=== PATIENT | female | born 1995 | race Caucasian/White ===

== ENCOUNTER 2021-07-01 16:52 | Emergency (ER) | payer SELFPAY ==
[2021-07-01 17:42] VITALS: BP 105/47; PULSE 63; TEMP 97.9; BMI 24.0
[2021-07-01 18:29] LABS: BASO % 0.4 % (0-2.0); EOS % 0.4 % (0-4.5); HEMATOCRIT 42.8 % (32.4-45.2); HEMOGLOBIN 14.7 GM/dL (10.7-15.3); LYMPH % 17.8 % (8-40); MCHC 34.3 g/dl (32.0-36.0); MEAN CELL VOLUME 93.5 fl (80-96); MEAN PLT VOLUME 9.6 fl (7.5-11.1); MONO % 5.3 % (3.8-10.2); NEUT % 76.1 % (42.8-82.8); PLATELET COUNT 273 10^3/uL (134-434); RBC 4.57 M/mm3 (3.60-5.2); RDW 12.2 % (11.6-15.6); WHITE BLOOD COUNT 11.8 K/mm3 (4.0-10.0)
[2021-07-01 18:46] LABS: CALCIUM 9.5 mg/dL (8.5-10.1)
[2021-07-01 18:47] LABS: BLOOD UREA NITROGEN 7.7 mg/dL (7-18)
[2021-07-01 18:50] LABS: CREATININE 0.5 mg/dL (0.55-1.3)
[2021-07-01 18:52] LABS: BILIRUBIN,TOTAL 0.2 mg/dL (0.2-1); TOT PROT 7.5 g/dl (6.4-8.2)
== END 2021-07-01 20:40 | disposition home or self-care (01) ==
LOC: JER 16:52
DX: O20.0 Threatened abortion (principal); Z3A.09 9 weeks gestation of pregnancy
CPT/HCPCS: 36415; 76801-TC; 80053; 84702; 85025; 86850; 86900; 86901; 99284-25